=== PATIENT | male | born 1955 | race Caucasian/White ===

== ENCOUNTER 2021-08-01 19:11 | Emergency (ER) | payer OTHER ==
[~2021-08-01] VITALS: Ht 177.8 cm; Wt 72.6 kg
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
[2021-08-01] MEDS ORDERED: DIAZEPAM2 MG PO (19:16)
[2021-08-01] MEDS ORDERED: NORCO5 PO ×2 (19:17→21:37)
[2021-08-01 21:12] LABS: BASOPHILS 0.7 % (0.0-2.0); EOSINOPHILS 4.5 % (0.0-3.0); HEMATOCRIT 42.1 % (42.0-52.0); HEMOGLOBIN 14.6 gm/dL (14.0-18.0); LYMPHOCYTES 10.6 % (24.0-44.0); MCH 30.1 pg (26.0-34.0); MCHC 34.8 g/dL (28.0-37.0); MCV 86.4 fL (80.0-100.0); MONOCYTES 9.9 % (1.0-8.0); PLATELET COUNT 321 thou/uL (150-400); POLYS 74.3 % (36.0-66.0); RBC 4.87 mil/uL (4.50-6.00); RDW 13.5 % (10.5-14.5); WBC 10.8 thou/uL (4.0-11.0)
[2021-08-01 21:16] LABS: CALCIUM 8.5 mg/dL (8.5-10.1); CREATININE 0.7 mg/dL (0.7-1.3); POTASSIUM 3.9 mmol/L (3.5-5.1)
[2021-08-01 21:26] LABS: ALBUMIN 2.8 g/dL (3.4-5.0); TOTAL BILIRUBIN 0.9 mg/dL (0.2-1.0); TOTAL PROTEIN 6.8 g/dL (6.4-8.2)
[2021-08-01] MEDS ORDERED: AUGMENTIN 875-1 EACH PO (21:37)
[2021-08-01 22:12] VITALS: BP 157/76
--- NOTE | 2021-08-02 07:36 | EKG ---
[place] [address] [address] [facility] [place] [address] ELECTROCARDIOGRAM REPORT Name: MANDO DOOLEY [facility]: [facility] [id number] Admission: 08/01/21 Attend Phys: Discharge: 08/01/21 Date of : 59 Report #: [id number] [facility] ED Test Date: 2021-08-01 Test Time: 19:56:13 Pat Name: MANDO DOOLEY Department: Room: Gender: M Chiropractic Physician: cesar : 1955 Requested By: Tj Jenkins Order Number: [id number] MD: Jimmy Leon Measurements Intervals [place] Rate: 84 P: 52 AR: 158 QRS: 33 QRSD: 76 T: 51 QT: 378 QTc: 447 Interpretive Statements Sinus rhythm Left atrial enlargement Probable left ventricular hypertrophy Compared to ECG 03/22/2007 15:35:03 Atrial abnormality now present ST (T wave) deviation no longer present Early repolarization no longer present Electronically Signed On 08-02-2021 7:35:36 CDT by Jimmy Leon [email or web address] <ELECTRONICALLY SIGNED> By: Jimmy Leon MD, [facility] 08/02/21 [id number] Jimmy Leon MD, FACC /EPI
== END 2021-08-01 22:14 | disposition home or self-care (01) ==
LOC: ER 19:11
PROVIDERS: Emergency Medicine
DX: J18.9 Pneumonia, unspecified organism (principal); R07.89 Other chest pain; F17.210 Nicotine dependence, cigarettes, uncomplicated; Z79.899 Other long term (current) drug therapy